=== PATIENT | female | born 1975 | race Caucasian/White ===

== ENCOUNTER 2018-11-12 15:27 | Emergency (ER) | payer SELFPAY ==
[~2018-11-12] VITALS: Ht 165.1 cm; Wt 104.5 kg
[2018-11-12 15:37] VITALS: Ht 165.1 cm; Wt 104.5 kg
[2018-11-12] MEDS ORDERED: LEVOXYL50 MCG PO (15:39)
[2018-11-12] MEDS ORDERED: WELLBUTRIN XL150 M1 PO (15:39)
[2018-11-12] MEDS ORDERED: MIRAPEX1.5 MG PO (15:39)
[2018-11-12] MEDS ORDERED: STRATTERA40 MG PO (15:40)
[2018-11-12] MEDS ORDERED: ZANTAC300 MG PO ×2 (15:40→19:20)
[2018-11-12 16:08] LABS: APPEARANCE CLEAR (CLEAR); BILIRUBIN NEGATIVE (NEGATIVE); COLOR YELLOW (YELLOW); GLUCOSE NEGATIVE (NEGATIVE); KETONE NEGATIVE (NEGATIVE); NITRITE NEGATIVE (NEGATIVE); PROTEIN NEGATIVE (NEGATIVE); UROBILINOGEN NORMAL (NORMAL)
[2018-11-12 16:09] LABS: BASOPHILS 0.3 % (0-2); EOSINOPHILS 1.4 % (0-7); HEMATOCRIT 37.8 % (36.0-48.0); HEMOGLOBIN 12.6 g/dL (12-16); IMMATURE GRANULOCYTES 0.2 % (0-5); LYMPHOCYTES 23.2 % (15-50); MCH 28.1 pg (26.0-34.0); MCHC 33.3 g/dL (31.0-37.0); MCV 84.2 fL (80.0-100.0); MEAN PLATELET VOLUME 9.6 fL (7.4-10.4); MONOCYTES 5.8 % (2-11); NEUTROPHILS 69.1 % (40-80); PLATELET COUNT 287 10x3/uL (130-400); RBC 4.49 10x6/uL (4.00-5.40); RDW 13.6 % (11.5-14.5); WBC 9.7 10x3/uL (4.8-10.8)
[2018-11-12 16:15] LABS: WHITE CELLS - URINE 0-5 /hpf (0-5)
[2018-11-12 16:19] LABS: RED CELLS - URINE 0-5 /hpf (0-5)
[2018-11-12 16:20] LABS: BACTERIA FEW /hpf (NONE SEEN); EPITHELIAL CELLS 0-5 /hpf (0-5)
--- NOTE | 2018-11-12 16:24 | NUR ---
PT'S NURSE PRESENT IN ROOM UPON ARRIVAL FOR SUICIDE ASSESSMENT. DR. ARIZMENDI NOTIFIED AND REVIEWED PT'S BEHAVIOR AND ASSESSMENT RESULTS. PT IS A LOW RISK DR. ARIZMENDI. DR. ARIZMENDI STATED TO GIVE RESOURCES TO PT AT TIME OF DISCHARGE. NO FURTHER ORDERS AT THIS TIME. RESOURCES REVIEWED WITH PT AND SHE VERBALIZED UNDERSTANDING.
[2018-11-12 16:44] LABS: ALBUMIN 3.4 g/dL (3.4-5.0); ALKALINE PHOSPHATASE 97 U/L (46-116); ALT (SGPT) 31 U/L (10-68); AMYLASE - SERUM 25 U/L (25-115); BILIRUBIN - TOTAL 0.36 mg/dL (0.2-1.3); CALC OSMOLALITY 283 mosm/kg (275-300); CALCIUM 8.7 mg/dL (8.5-10.1); CARBON DIOXIDE 28.5 mmol/L (21.0-32.0); CHLORIDE - SERUM 106 mmol/L (98-107); GLUCOSE 96 mg/dL (74-106); LIPASE 142 U/L (73-393); POTASSIUM - SERUM 3.2 mmol/L (3.5-5.1); PROTEIN - SERUM 7.3 g/dL (6.4-8.2); SODIUM 143 mmol/L (136-145); UREA NITROGEN 9 mg/dL (7-18); eGFR NON AFRICAN AMERICAN 63 mL/min (90-120)
[2018-11-12 16:46] LABS: TROPONIN-I < 0.017 ng/mL (0.000-0.060)
[2018-11-12] MEDS ORDERED: KEFLEX500 MG PO (19:20)
[2018-11-12] MEDS ORDERED: MACROBID100 MG PO (19:20)
[2018-11-12 20:28] VITALS: BP 150/94
== END 2018-11-12 20:34 | disposition home or self-care (01) ==
LOC: D.ER 15:27
PROVIDERS: Family Medicine
DX: R10.13 Epigastric pain (principal); E87.6 Hypokalemia; N39.0 Urinary tract infection, site not specified